=== PATIENT | female | born 1980 | race Caucasian/White ===

== ENCOUNTER 2016-11-27 04:30 | Inpatient (IN) ==
[~2016-11-27 04:30] MED LIST: Famotidine 20 MG/2 ML VIAL IVP PRN; Naloxone 0.4 MG/ML INJ IVP PRN; Ringers Solution, Lactated 1,000 ML IVC SCH
[2016-11-27] MEDS ORDERED: Acetaminophen 325 MG TABLET PO ONE (04:32)
[2016-11-27] MEDS ORDERED: Ondansetron 4 MG/2 ML VIAL IVP PRN (04:32)
[2016-11-27 04:39] LABS: Basophils % 0.4 %; Eosinophils # 0.2 K/mcL (0.0-0.6); Eosinophils % 2.2 %; Hematocrit 36.1 % (35.3-44.9); Immature Granulocytes % 0.5 % (0-4); Lymphocytes # 2.5 K/mcL (0.6-4.6); Lymphocytes % 25.9 %; Mean Corpuscular HGB Conc 33.2 g/dL (31.6-35.5); Mean Corpuscular Hemoglobin 28.4 pg (28.0-33.3); Mean Corpuscular Volume 85.3 fL (83.0-100.0); Mean Platelet Volume 10.4 fL (9.4-12.4); Monocytes # 0.5 K/mcL (0.0-1.3); Monocytes % 5.3 %; Neutrophils # 6.4 K/mcL (1.6-8.9); Platelet Count 238 K/mcL (140-400); Red Blood Count 4.23 M/mcL (3.82-4.97); Red Cell Distribution Width 15.3 % (11.5-14.5); Segmented Neutrophils % 65.7 %
--- NOTE | 2016-11-27 07:41 | Anesthesia Evaluation PreOp ---
Date of Encounter: 11/27/16 Time of Encounter: 07:38 - Past History Cardiac History: Denies any Significant Hx Pulmonary History: Asthma (inhaler once a month) SOFTWARE RELEASE MANAGER History: Denies Any Significant HX Other Medical History: Renal (lithiasis), Diabetes Type II (gestatioinal), Other (DVTafter cellulitis 3 years ago, not on chronic anticoagulants Undifferentiated connective tissue d/o) Anesthesia History: No Prior Anesthetic Complications, Past Anesthesia : Yes (38 weeks ) Alcohol Use: none Drug use: none Medications and Allergies Albuterol Sulfate [Ventolin Hfa] 90 mcg IH DAILY 11/27/16 [History] Aspirin 81 mg PO DAILY 11/27/16 [History] Cetirizine HCl [Zyrtec] 10 mg PO DAILY 11/27/16 [History] Doxylamine Succinate [Unisom] 1 tab PO DAILY 11/27/16 [History] Enoxaparin [Lovenox] 40 mg SQ DAILY 11/27/16 [History] Ergocalciferol (VITAMIN D2) [Vitamin D] 400 unit PO DAILY 11/27/16 [History] Ferrous Sulfate [Iron] 650 mg PO DAILY 11/27/16 [History] Folic Acid 1 mg PO DAILY 11/27/16 [History] Hydroxychloroquine [Plaquenuil] 2 tab PO DAILY 11/27/16 [History] Pyridoxine HCl [Vitamin B-6] 25 mg PO TID 11/27/16 [History] Sertraline [Zoloft] 50 mg PO DAILY 11/27/16 [History] Allergies No Known Allergies Allergy (Verified 11/27/16 04:28) - Meds/Allergy Pre-op Review Medications Reviewed: Yes Allergies Reviewed: Yes Beta Blockers on Current Med List: No Anesthesia Results - Labs 11/27/16 03:25 Anesthesia Exam O2 Sat Height 1.73 m Weight 101.5 kg bp 116/68 Height: 68 Weight: 101 - HEENT Pupil (Motor): Pupils equal Mallampati: II Teeth: Normal Oral Opening: Greater than 3 - SOFTWARE RELEASE MANAGER LOC: Oriented SOFTWARE RELEASE MANAGER Motor: Normal RUE, Normal LUE, Normal RLE, Normal LLE, Normal Face SOFTWARE RELEASE MANAGER Sensory: Normal: RUE, LUE, RLE, LLE, Face - Cardiac Rhythm: Regular Murmur: None JVD: No Carotid Bruit: No - Pulmonary Breath Sounds: bilateral Clear Respiratory Effort: Symmetrical Anesthesia Assess/Plan ASA Score: 2 Modified Scooby Scale for Level of Consciousness: Cooperative, oriented, and tranquil Anesthetic Plan: Regional Monitoring Plan: Standard Monitors
--- NOTE | 2016-11-27 09:20 | OB/GYN History & Physical ---
Date of Encounter: 11/27/16 Time of Encounter: 08:46 Assessment and Plan (1) 38 weeks gestation of Current visit: Yes Status: Acute (2) Grand multipara in labor in third trimester Current visit: Yes Status: Chronic SROM clear fluid at home (3) Obesity affecting in third trimester, antepartum Current visit: Yes Status: Chronic (4) Limited care in third trimester Current visit: Yes Status: Chronic Co-managed with [facility] MFM (5) History of DVT (deep vein thrombosis) Current visit: Yes Status: Chronic Patient has been on Lovenox until recently at which time she self discontinued and started on baby aspirin. MFM aware. She is not planning any regional anesthetic. It is recommended that she be on Lovenox (6) Maternal history of connective tissue disease Current visit: Yes Status: Chronic (7) SS-A antibody positive Current visit: Yes Status: Chronic History of Present Illness Chief complaint: 38 wk SROM HPI: Ms. Guerrero is a 36 year old female 016 at 38 weeks with an EDC of 12/10/16 x 17 week ultrasound who presents to labor and delivery with spontaneous rupture of membranes, clear fluid at 02 30 this morning. She denies any regular contractions. She has a history of 1 rapid labor with delivery and 1-1/2 hours. Her longest labor was 12 hours. She had not made any significant cervical change since her exam the day prior. She denies any vaginal bleeding. She reports fetus is active. Her has been complicated by maternal connective tissue disorder and a positive SSA antibody with a history of a DVT in a prior . She also has a history of gestational diabetes and is currently an A1 gestational diabetic with this . Her blood sugars have been followed by [facility]. She had late care and has been noncompliant with visits. Past Med Surg Social Fam HX - Past Medical History Source: patient, old records reviewed Medical history: asthma Psychiatric history: depression - Past Surgical History Surgical History: other - Social History Smoking Status: Never smoker Smokeless Tobacco Status: No Alcohol use: none Drug use: none - Family History Mother Adopted: No Hx Family Cardiac Disorders: No Hx Family Respiratory Disorders: No Hx Family Cancer: No Hx Family GI Disorders: No Hx Family Genitourinary Disorders: No Hx Family Endocrine Disorder: No Hx Family Musculoskeletal Disorders: No Hx Family Neuromuscular Disorders: No Hx Family Neurologic Disorders: No Hx Family HEENT Disorders: No Hx Family Autoimmune Disorders: No Hx Family Reproductive Disorders: No Hx Family Psychosocial Disorders: No Hx Family Medical Disorders: No Obstetrical History - Pregnancies : 8 Term: 6 Ab's: 1 Livin Medications and Allergies Albuterol Sulfate [Ventolin Hfa] 90 mcg IH DAILY 11/27/16 [History] Aspirin 81 mg PO DAILY 11/27/16 [History] Cetirizine HCl [Zyrtec] 10 mg PO DAILY 11/27/16 [History] Doxylamine Succinate [Unisom] 1 tab PO DAILY 11/27/16 [History] Enoxaparin [Lovenox] 40 mg SQ DAILY 11/27/16 [History] Ergocalciferol (VITAMIN D2) [Vitamin D] 400 unit PO DAILY 11/27/16 [History] Ferrous Sulfate [Iron] 650 mg PO DAILY 11/27/16 [History] Folic Acid 1 mg PO DAILY 11/27/16 [History] Hydroxychloroquine [Plaquenuil] 2 tab PO DAILY 11/27/16 [History] Pyridoxine HCl [Vitamin B-6] 25 mg PO TID 11/27/16 [History] Sertraline [Zoloft] 50 mg PO DAILY 11/27/16 [History] Allergies No Known Allergies Allergy (Verified 11/27/16 04:28) Review of System OB All systems PM: reviewed and no additional remarkable complaints except as stated - Constitutional Constitutional ROS IM: weight gain - Hematologic/Lymphatic Hematologic/Lymphatic: other (varicose veins) Exam - Vital Signs Vital signs: Afeb, VSS - Constitutional Constitutional: well developed, well nourished, no acute distress, obese - HEENT HEENT: Normocephaly, Mucus Membranes Moist - Neck Neck exam: normal inspection, supple - Lungs Respiratory exam: CTAB - Cardiovascular Cardiovascular exam: RRR - Abdomen Abdomen: Present: bowel sounds normal, gravid, non tender - Extremities Extremities exam: normal inspection (Bilateral varicose veins), pedal edema, warm - Vagina Vagina: Present: normal moisture - Cervix Dilation: 6 Effacement: 70 Station: -2 (vtx) - Anus/Rectum Anus/Rectum: Present: normal perianal skin Results Result Diagrams: 11/27/16 03:25 Abnormal lab results RDW 15.3 % (11.5-14.5) H 11/27/16 03:25 All other labs normal. - VTE Deep Vein Thrombosis/Pulmonary Embolism Present on Admission: No
--- NOTE | 2016-11-27 13:20 | OB Labor Progress Note ---
Date of Encounter: 11/27/16 Time of Encounter: 13:18 Labor Progress Note - Subjective Subjective: Pt continues to report increasing discomfort with contractions but not severe pain. - Cervix Cervix: 6/80/-1 - Heart Tones Heart Tones: Category I - [place]: irregular - Interventions Interventions: IUPC placed - Plan Plan: Begin pitocin augmentation
[2016-11-27] MEDS ORDERED: Oxytocin 20 units/ LR 1000 mL 20 UNIT/1,000 ML BAG IVC SCH (13:30)
--- NOTE | 2016-11-27 14:55 | OB Labor Progress Note ---
Date of Encounter: 11/27/16 Time of Encounter: 14:53 Labor Progress Note - Subjective Subjective: The pt reports becoming more uncomfortable with the IV pitocin but is holding off on asking for Nubaine. She denies pressure. - Vital Signs Vital Signs: Afeb, VSS - Cervix Cervix: not checked - Heart Tones Heart Tones: 150s CAT1 - Smiley Smiley: ctx q 5-7' on PIT - Interventions Interventions: 38 wk IUP w/ SROM and no cervical change now on Pit augmentation - Plan Plan: anticipate
[2016-11-27] MEDS ORDERED: *HR* Nalbuphine 20 MG/ML AMPUL ONE (15:24)
[2016-11-27] MEDS ORDERED: *HR* Enoxaparin 40 MG/0.4 ML SYRINGE SQ SCH (19:00)
--- NOTE | 2016-11-27 19:06 | OB/GYN Procedure Note ---
Delivery - Delivery Date: 11/27/16 Provider: Margaret Kate Intrapartum events: none Delivery induction: none Delivery augmentation: pitocin Delivery monitor: external FHT, external uterine, internal uterine Anesthesia: intravenous Estimated Blood Loss: 100 - Infant (s) A Delivery Date: 11/27/16 Delivery Time: 18:45 Presentation: vertex Position: LOP Route of delivery: Gender: Female Viability: Viable Pounds: 7 Ounces: 11 Weight Gram: 3.485 kg at 1 minute: 8 at 5 mins: 9 Shoulder Dystocia: not encountered Specimens collected: cord blood Placenta: spontaneous, uterine exploration Cord: 3 umbilical vessels - Repair Episiotomy: none Laceration Description: None - Complications Delivery complications: none Delivery comments: The patient was complete and pushing with epidural anesthesia with a spontaneous vaginal delivery in the LOP position of a vigorous female weighing 7 lbs. 11 oz. with Apgars of 8 at 1 minute and 9 at 5 minutes. was placed on the maternal abdomen. The cord was clamped and cut after pulsations ceased. Cord blood obtained. The placenta was delivered spontaneous and intact. No vaginal or cervical lacerations identified. Estimated blood loss 100 mL, complications none - Disposition Mom disposition: stable in LDR disposition: stable in LDR
[2016-11-27] MEDS ORDERED: Ibuprofen 600 MG TABLET PO PRN (21:35)
[2016-11-27] MEDS ORDERED: Oxytocin 20 units/ LR 1000 mL 20 UNIT/1,000 ML BAG IVC ONE (21:35)
[2016-11-27] MEDS ORDERED: Oxytocin 20 units/ LR 1000 mL 20 UNIT/1,000 ML BAG IV SCH (21:35)
[2016-11-27] MEDS ORDERED: Acetaminophen 325 MG TABLET PO PRN (21:35)
[2016-11-27] MEDS ORDERED: Rho Immune Globulin 1,500 UNIT SYRINGE IM PRN (21:35)
[2016-11-27] MEDS ORDERED: Ondansetron 4 MG/2 ML VIAL IVP ONE (21:41)
[2016-11-28 03:51] LABS: Basophils % 0.3 %; Eosinophils % 0.3 %; Hematocrit 29.6 % (35.3-44.9); Immature Granulocytes % 0.7 % (0-4); Lymphocytes # 2.2 K/mcL (0.6-4.6); Lymphocytes % 19.2 %; Mean Corpuscular HGB Conc 33.1 g/dL (31.6-35.5); Mean Corpuscular Hemoglobin 29.1 pg (28.0-33.3); Mean Corpuscular Volume 87.8 fL (83.0-100.0); Mean Platelet Volume 9.8 fL (9.4-12.4); Monocytes # 0.5 K/mcL (0.0-1.3); Neutrophils # 8.6 K/mcL (1.6-8.9); Platelet Count 186 K/mcL (140-400); Red Blood Count 3.37 M/mcL (3.82-4.97); Red Cell Distribution Width 15.2 % (11.5-14.5); Segmented Neutrophils % 75.5 %
[2016-11-28 03:56] LABS: Hemoglobin 9.8 g/dL (11.5-15.4)
[2016-11-28 04:22] VITALS: BP 106/59
[2016-11-28] MEDS ORDERED: Aspirin 81 MG TAB.CHEW PO SCH (09:00)
[2016-11-28] MEDS ORDERED: Prenatal Vit/FA 1 EACH TABLET PO SCH (09:00)
[2016-11-28] MEDS ORDERED: ZYRTEC 10 MG PO SCH (09:00)
--- NOTE | 2016-11-28 09:12 | Discharge Summary ---
Date of Encounter: 11/28/16 Time of Encounter: 09:10 - Discharge Diagnosis (1) (normal spontaneous vaginal delivery) Priority: Primary Status: Acute Comments: Pt meeting milestones. (2) History of DVT (deep vein thrombosis) Priority: Secondary Status: Chronic (3) Obesity affecting in third trimester, antepartum Priority: Secondary Status: Chronic - Discharge Medications Prescriptions: Ibuprofen [Motrin] 600 mg PO Q6HR PRN #60 tablet PRN Reason: Cramping Docusate [Colace] 100 mg PO BID #60 capsule Enoxaparin [Lovenox] 40 mg SQ DAILY #42 syringe Home Medications: Albuterol Sulfate [Ventolin Hfa] 90 mcg IH DAILY 11/27/16 [History] Cetirizine HCl [Zyrtec] 10 mg PO DAILY 11/27/16 [History] Ergocalciferol (VITAMIN D2) [Vitamin D] 400 unit PO DAILY 11/27/16 [History] Ferrous Sulfate [Iron] 650 mg PO DAILY 11/27/16 [History] Hydroxychloroquine [Plaquenuil] 2 tab PO DAILY 11/27/16 [History] Sertraline [Zoloft] 50 mg PO DAILY 11/27/16 [History] Docusate [Colace] 100 mg PO BID #60 capsule 11/28/16 [Rx] Enoxaparin [Lovenox] 40 mg SQ DAILY #42 syringe 11/28/16 [Rx] Ibuprofen [Motrin] 600 mg PO Q6HR PRN #60 tablet 11/28/16 [Rx] Vit/FA 1 each PO DAILY tablet 11/28/16 [Rx] Allergies/Adverse Reactions: Allergies No Known Allergies Allergy (Verified 11/27/16 04:28) Data Procedures and tests throughout hospitalization: Laboratory Tests 11/27/16 11/28/16 03:25 03:38 WBC 9.7 11.4 H RBC 4.23 3.37 L Hgb 12.0 9.8 L D Hct 36.1 29.6 L MCV 85.3 87.8 MCH 28.4 29.1 MCHC 33.2 33.1 RDW 15.3 H 15.2 H Plt Count 238 186 MPV 10.4 9.8 Immature Gran % 0.5 0.7 Seg Neutrophils % 65.7 75.5 Lymphocytes % 25.9 19.2 Monocytes % 5.3 4.0 Eosinophils % 2.2 0.3 Basophils % 0.4 0.3 Neutrophils # 6.4 8.6 Lymphocytes # 2.5 2.2 Monocytes # 0.5 0.5 Eosinophils # 0.2 0.0 Basophils # 0.0 0.0 Labs on day of discharge: Labs from last 24 hours 11/28/16 03:38 WBC 11.4 H RBC 3.37 L Hgb 9.8 L D Hct 29.6 L MCV 87.8 MCH 29.1 MCHC 33.1 RDW 15.2 H Plt Count 186 MPV 9.8 Immature Gran % 0.7 Seg Neutrophils % 75.5 Lymphocytes % 19.2 Monocytes % 4.0 Eosinophils % 0.3 Basophils % 0.3 Neutrophils # 8.6 Lymphocytes # 2.2 Monocytes # 0.5 Eosinophils # 0.0 Basophils # 0.0 Date of admission: 11/27/16 04:30 Primary care physician: Oumou Pryor CNP Consults: 11/27/16 21:35 Consult to Sous Chef Kitchen Manager [CONS] Routine Comment: Vaginal delivery, consult needed Discharging clinician: Ghazala Oro Anticipated date of discharge: 11/28/16 - Patient Status Disposition: Home, Self-Care Condition: Good Functional capacity at discharge: independent ambulation Overall status at discharge: patient is progressing back to baseline - Discharge Instructions Follow Up With: Oumou Pryor CNP [Primary Care Provider] - Margaret Kate MD [Partnered Physician] - - Diet and Activity Activity: increase activity as tolerated Diet: advance to your usual diet Hospital Course Reason for admission: active labor Delivery: Episiotomy: none Laceration: none Other procedures: none complications: none Discharge diagnosis: IUP at term delivered [place] baby: female Hospital course: - Delivery Date: 11/27/16 Provider: Margaret Kate Intrapartum events: none Delivery induction: none Delivery augmentation: pitocin Delivery monitor: external FHT, external uterine, internal uterine Anesthesia: intravenous Estimated Blood Loss: 100 - Infant (s) A Infant Delivery Date: 11/27/16 Delivery Time: 18:45 Presentation: vertex Position: LOP Route of delivery: Gender: Female Viability: Viable Pounds: 7 Ounces: 11 Weight Gram: 3.485 kg at 1 minute: 8 at 5 mins: 9 Shoulder Dystocia: not encountered Specimens collected: cord blood Placenta: spontaneous, uterine exploration Cord: 3 umbilical vessels - Repair Episiotomy: none Laceration Description: None - Disposition Mom disposition: home PPD#1 [place] disposition: home with mother, Time Attestation: Total time spent providing and/or coordinating discharge services: Time Spent: Less than 30 minutes Exam - Constitutional Vitals: Temp Pulse Resp BP Pulse Ox 97.7 F 65 14 106/59 99 11/28/16 03:00 11/28/16 03:00 11/28/16 03:00 11/28/16 03:00 11/28/16 03:00 General appearance IM: A&O X 3, pleasant, no acute distress - Respiratory Respiratory exam: Present: CTAB - Cardiovascular Cardiovascular exam IM: Present: RRR, +S1, +S2 - GI/Abdominal GI/Abdominal exam IM: soft - External exam: normal external exam Uterine Tone: Firm Uterus Position: At Umbilicus - Extremities Exam Extremities exam IM: Present: normal inspection - Neurological Exam Neurological exam: normal gait, oriented X3 - Psychiatric Additional comments: reports good mood
== END 2016-11-28 19:00 | disposition home or self-care (01) | DRG 560 ==
LOC: 1NENULAB → 1NENUOBS 22:15
PROVIDERS: ADMIT Obstetrics & Gynecology; ATTEND Obstetrics & Gynecology

== ENCOUNTER 2019-12-10 18:41 | Inpatient (IN) ==
[2019-12-10 15:53] LABS: Amphetamine Screen,Urine Negative ng/mL (Cutoff=1000); Barbiturate Screen,Urine Negative ng/mL (Cutoff=200); Benzodiazepines Screen,Urine Negative ng/mL (Cutoff=200); Cannabinoid Screen,Urine Negative ng/mL (Cutoff = 50); Cocaine Screen,Urine Negative ng/mL (Cutoff= 300); Opiate Screen,Urine Negative ng/mL (Cutoff=300); Phencyclidine Screen,Urine Negative ng/mL (Cutoff=25)
[~2019-12-10 18:41] MED LIST changes: +*HR* Nalbuphine 10 MG/ML AMPUL IVP PRN; +Aspirin 81 MG TAB.CHEW PO SCH; +Azithromycin 500 MG in 0.9 % Sodium Chloride 250 ML IVPB ONE; +Lidocaine 1% 20 ML MDV INFILT PRN; +Metoclopramide 10 MG/2 ML VIAL IVP PRN; +Ondansetron 4 MG/2 ML VIAL IVP PRN; +Ondansetron ODT 4 MG TAB.RAPDIS SL PRN; +Penicillin G Potassium 5,000,000 UNIT in 0.9 % Sodium Chloride Mini Bag 100 ML IVPB ONE
[2019-12-10] MEDS ORDERED: *HR* Heparin 5,000 UNIT/ML VIAL SQ SCH (18:45)
[2019-12-10 19:14] LABS: Basophils % 0.4 %; Eosinophils # 0.1 K/mcL (0.0-0.6); Eosinophils % 0.6 %; Hematocrit 32.6 % (35.3-44.9); Hemoglobin 10.6 g/dL (11.5-15.4); Immature Granulocytes % 0.5 % (0-4); Lymphocytes # 1.4 K/mcL (0.6-4.6); Lymphocytes % 14.7 %; Mean Corpuscular HGB Conc 32.5 g/dL (31.6-35.5); Mean Corpuscular Hemoglobin 26.4 pg (28.0-33.3); Mean Corpuscular Volume 81.1 fL (83.0-100.0); Mean Platelet Volume 10.5 fL (9.4-12.4); Monocytes # 0.5 K/mcL (0.0-1.3); Monocytes % 5.5 %; Neutrophils # 7.3 K/mcL (1.6-8.9); Platelet Count 268 K/mcL (140-400); Red Blood Count 4.02 M/mcL (3.82-4.97); Segmented Neutrophils % 78.3 %; White Blood Count 9.3 K/mcL (4.3-11.1)
[2019-12-10] MEDS ORDERED: Dextromethorphan Polistrx(12h) 30 MG/5 ML UDC PO PRN (19:37)
[2019-12-10] MEDS ORDERED: Mag Hydrox/Al Hydrox/Simeth 30 ML UDC PO PRN (22:18)
[2019-12-10] MEDS ORDERED: Oxytocin 20 units/ LR 1000 mL 20 UNIT/1,000 ML BAG IVC ONE (23:39)
[2019-12-11] MEDS ORDERED: Penicillin G Potassium 2,500,000 UNIT in 0.9 % Sodium Chloride 100 ML IVPB SCH
[2019-12-11] MEDS ORDERED: Acetaminophen 325 MG TABLET PO PRN (04:45)
[2019-12-11] MEDS ORDERED: Dextromethorphan Polistrx(12h) 30 MG/5 ML UDC PO PRN (04:45)
[2019-12-11] MEDS ORDERED: Ondansetron ODT 4 MG TAB.RAPDIS SL PRN (04:45)
[2019-12-11] MEDS ORDERED: Lanolin 7 G OINT...G. TP PRN (04:45)
[2019-12-11] MEDS ORDERED: Oxytocin 20 units/ LR 1000 mL 20 UNIT/1,000 ML BAG IVC SCH (04:45)
[2019-12-11] MEDS ORDERED: Mag Hydrox/Al Hydrox/Simeth 30 ML UDC PO PRN (04:45)
[2019-12-11] MEDS ORDERED: Benzocaine/Menthol 56 GM AEROSOL SPRAY TP PRN (04:45)
[2019-12-11] MEDS ORDERED: Oxytocin 20 units/ LR 1000 mL 20 UNIT/1,000 ML BAG IVC ONE (04:45)
[2019-12-11] MEDS ORDERED: Measles/Mumps/Rubella Vacc 0.5 ML VIAL SQ PRN (04:45)
[2019-12-11] MEDS ORDERED: *HR* Heparin 5,000 UNIT/ML VIAL SQ SCH (06:00)
[2019-12-11] MEDS: Prenatal Vit/FA 1 EACH TABLET PO SCH (09:06)
[2019-12-11] MEDS: Aspirin 81 MG TAB.CHEW PO SCH (09:06)
[2019-12-11] MEDS: *HR* Enoxaparin 40 MG/0.4 ML SYRINGE SQ SCH (10:30)
[2019-12-11 11:10] LABS: Hematocrit 27.2 % (35.3-44.9); Mean Corpuscular HGB Conc 31.6 g/dL (31.6-35.5); Mean Corpuscular Hemoglobin 26.7 pg (28.0-33.3); Mean Corpuscular Volume 84.5 fL (83.0-100.0); Mean Platelet Volume 10.8 fL (9.4-12.4); Platelet Count 236 K/mcL (140-400); Red Blood Count 3.22 M/mcL (3.82-4.97); Red Cell Distribution Width 13.7 % (11.5-14.5); White Blood Count 10.6 K/mcL (4.3-11.1)
[2019-12-11 11:12] LABS: Hemoglobin 8.6 g/dL (11.5-15.4)
[2019-12-11] MEDS: Ibuprofen 600 MG TABLET PO PRN (18:45)
[2019-12-12] MEDS: Ibuprofen 600 MG TABLET PO PRN (05:16)
[2019-12-12] MEDS: *HR* Enoxaparin 40 MG/0.4 ML SYRINGE SQ SCH (06:13)
[2019-12-12 07:59] VITALS: BP 116/72
[2019-12-12] MEDS: Aspirin 81 MG TAB.CHEW PO SCH (09:06)
[2019-12-12] MEDS: Prenatal Vit/FA 1 EACH TABLET PO SCH (09:07)
[2019-12-12] MEDS ORDERED: Saline Nasal Spray 44 ML BOTTLE NS PRN (09:59)
== END 2019-12-12 20:00 | disposition home or self-care (01) | DRG 541 ==
LOC: 1NENULAB → 1NENUOBS 12-11 04:43
PROVIDERS: ADMIT Advanced Practice Midwife; ATTEND Advanced Practice Midwife